=== PATIENT | female | born 1990 | race Two or more races ===

== ENCOUNTER 2022-01-05 05:58 | Day surgery (SDC) | payer OTHER ==
[2022-01-05] MEDS ORDERED: PERCOCET 5-3251 EACH PO (09:54)
[2022-01-05] MEDS ORDERED: NEURONTIN300 MG PO (09:54)
[2022-01-05] MEDS ORDERED: DERMOPLAST PAIN78 GM TOP (09:55)
[2022-01-05] MEDS ORDERED: KETO10TA2 PO (09:55)
== END 2022-01-05 13:30 | disposition home or self-care (01) ==
LOC: CIR.AMB 05:58
PROVIDERS: ATTEND Surgery
DX: K61.0 Anal abscess (principal)

== ENCOUNTER 2023-03-06 08:10 | Outpatient (CLI) | payer OTHER ==
[~2023-03-06 08:10] MED LIST: DERMOPLAST PAIN78 GM TOP; KETO10TA2 PO; NEURONTIN300 MG PO; PERCOCET 5-3251 EACH PO
[2023-03-06] MEDS ORDERED: PRENATABS RX T1 EACH PO (13:23)
[2023-03-06] MEDS ORDERED: CHILDREN'S ASPI81 MG PO (13:23)
== END 2023-03-06 12:08 | disposition home or self-care (01) ==
LOC: PRENATAL 08:10
PROVIDERS: ATTEND Obstetrics & Gynecology Maternal & Fetal Medicine
DX: O26.849 Uterine size-date discrepancy, unspecified trimester (principal); O26.879 Cervical shortening, unspecified trimester; Z14.8 Genetic carrier of other disease; O99.210 Obesity complicating pregnancy, unspecified trimester; Z3A.21 21 weeks gestation of pregnancy

== ENCOUNTER → 2023-03-07 | Day surgery (SDC) | payer OTHER ==
[2023-03-06 13:54] LABS: HEMATOCRIT 34.5 % (36.0-45.00); HEMOGLOBIN 11.7 g/dL (12.0-15.00); MEAN CELL VOLUME 81.7 fL (80.00-100.00); MEAN CORPUSCULAR HEMOGLOBIN 27.6 pg (27.00-32.0); MEAN CORPUSCULAR HGB CONC 33.8 g/dl (32.0-36.0); PLATELET COUNT 237 K/uL (150-450); RED BLOOD COUNT 4.22 M/uL (4.00-6.00); RED CELL DISTRIBUTION WIDTH 14.3 % (11.5-14.5)
[~2023-03-07] MED LIST changes: +CHILDREN'S ASPI81 MG PO; +INDOMETHACIN25 MG PO; +PRENATABS RX T1 EACH PO
== END | disposition home or self-care (01) ==
LOC: CIR.AMB 09:58 → AMB-ENDOS 11:54
PROVIDERS: ATTEND Obstetrics & Gynecology Maternal & Fetal Medicine
DX: O34.32 Maternal care for cervical incompetence, second trimester (principal); O26.872 Cervical shortening, second trimester; Z3A.22 22 weeks gestation of pregnancy; Z20.822 Contact with and (suspected) exposure to COVID-19

== ENCOUNTER 2023-03-22 06:24 | Inpatient (IN) | payer OTHER ==
[~2023-03-22] VITALS: Ht 162.6 cm; Wt 106.1 kg
--- NOTE | 2023-03-22 06:40 | NUR ---
PTE REFIERE MALESTAR AL ORINA CON DOLOR PELVICO LADO SOLOMON QUE INRADIA HACIA LA ESPALDA. PTE REFIERE DOLOR SURYA. PTE REFIERE QUE ESTA CON ANTIBITICOS Y MEDICAMENTOS PARA EL DOLOR QUE NO LA HURT AYUDADO. PTE EMBAZADA DE 24 SEMANAS. SE ACOMDA EN AREA DE PASILLO.
--- NOTE | 2023-03-22 08:47 | NUR ---
PACIENTE ALERTA Y ORIENTADA EN TAMELA JÚNIOR ESFERAS; UBICADA EN CUBICULO #9 LA MISMA ES ADMITIDA BAJO LOS SERVICIOS DEL DR. CONI YEH. SE EDUCA ACERCA DE PROCESO DE ADMISION Y REFIERE ENTEDER. SE CANALIZA Y COLECTAN MUESTRAS DE LABORATORIO MEDIANTE MEDIDAS ASEPTICAS. SE ADMINISTRAN MEDICAMENTOS ASHLY ORDEN MEDICA
[2023-03-22 08:49] LABS: HEMATOCRIT 32.6 % (36.0-45.00); HEMOGLOBIN 10.7 g/dL (12.0-15.00); MEAN CELL VOLUME 82.8 fL (80.00-100.00); MEAN CORPUSCULAR HEMOGLOBIN 27.3 pg (27.00-32.0); MEAN CORPUSCULAR HGB CONC 32.9 g/dl (32.0-36.0); PLATELET COUNT 258 K/uL (150-450); RED BLOOD COUNT 3.94 M/uL (4.00-6.00); RED CELL DISTRIBUTION WIDTH 14.1 % (11.5-14.5)
[2023-03-22 09:02] LABS: PH,URINE 6.5 (5.0-8.0); URINE APPEARANCE Cloudy; URINE BILIRRUBIN Negative (NEGATIVE); URINE BLOOD NHT; URINE COLOR Yellow; URINE GLUCOSE Negative (NEGATIVE); URINE LEUKOCYTE Large; URINE NITRATE Negative; URINE PROTEIN Negative (NEGATIVE); URINE UROBILINOGEN 0.2 E.U./dl
[2023-03-22 09:06] LABS: URINE BACTERIA 3869.4 uL (0.0-1933); URINE EPITHELIAL CELLS 73.7 uL (0.0-38.8); URINE RBC 81.6 uL (0.0-20.8); URINE WBC 615.6 uL (0.0-23.2)
[2023-03-22 09:26] LABS: CALCIUM 8.8 mg/dL (8.5-10.1); CREATININE SERUM 1.14 mg/dL (0.55-1.02); GFR 55.59; POTASSIUM 3.99 mEq/L (3.5-5.1)
== END 2023-03-24 10:02 | disposition home or self-care (01) | DRG 833 ==
LOC: ER 06:24 → SEC-K 07:59 → OB/GYN 07:59
PROVIDERS: General Practice; ADMIT Obstetrics & Gynecology; ATTEND Obstetrics & Gynecology
PROC: BT43ZZZ Ultrasonography of Bilateral Kidneys (ICD-10-PCS; 2023-03-21)
PROC: 4A1HXCZ Monitoring of Products of Conception, Cardiac Rate, External Approach (ICD-10-PCS; principal; 2023-03-22)
DX: O23.02 Infections of kidney in pregnancy, second trimester (principal); Z3A.24 24 weeks gestation of pregnancy; Z20.822 Contact with and (suspected) exposure to COVID-19

== ENCOUNTER 2023-03-24 11:29 | Outpatient (CLI) | payer OTHER | END 2023-03-24 15:24 | disposition home or self-care (01) | LOC: PRENATAL 11:29 | PROVIDERS: ATTEND Obstetrics & Gynecology Maternal & Fetal Medicine | DX: O26.879 Cervical shortening, unspecified trimester (principal); Z14.8 Genetic carrier of other disease; O99.210 Obesity complicating pregnancy, unspecified trimester; Z3A.24 24 weeks gestation of pregnancy ==

== ENCOUNTER 2023-04-24 08:59 | Outpatient (CLI) | payer OTHER | END 2023-04-24 09:08 | disposition home or self-care (01) | LOC: PRENATAL 08:59 | PROVIDERS: ATTEND Obstetrics & Gynecology Maternal & Fetal Medicine | DX: O26.849 Uterine size-date discrepancy, unspecified trimester (principal); O26.879 Cervical shortening, unspecified trimester; O99.210 Obesity complicating pregnancy, unspecified trimester; Z3A.28 28 weeks gestation of pregnancy ==

== ENCOUNTER 2023-05-30 15:44 | Outpatient (CLI) | payer OTHER | END 2023-05-30 15:46 | disposition home or self-care (01) | LOC: PRENATAL 15:44 | PROVIDERS: ATTEND Obstetrics & Gynecology Maternal & Fetal Medicine | DX: O26.849 Uterine size-date discrepancy, unspecified trimester (principal); O36.8199 Decreased fetal movements, unspecified trimester, other fetus; O26.879 Cervical shortening, unspecified trimester; O99.210 Obesity complicating pregnancy, unspecified trimester; Z3A.34 34 weeks gestation of pregnancy ==

== ENCOUNTER 2023-07-10 05:07 | Inpatient (IN) | payer OTHER ==
[~2023-07-10] VITALS: Ht 165.1 cm; Wt 110.7 kg
[2023-07-10] MEDS ORDERED: IRON236 MG PO (06:10)
[2023-07-10 06:25] LABS: URINE APPEARANCE Turbid; URINE BILIRRUBIN Negative (NEGATIVE); URINE BLOOD Negative; URINE COLOR Yellow; URINE GLUCOSE Negative (NEGATIVE); URINE LEUKOCYTE Trace; URINE NITRATE Negative; URINE UROBILINOGEN 0.2 E.U./dl
[2023-07-10 06:29] LABS: URINE BACTERIA 825.2 uL (0.0-1933); URINE EPITHELIAL CELLS 111.1 uL (0.0-38.8); URINE RBC 1639.4 uL (0.0-20.8); URINE WBC 273.2 uL (0.0-23.2)
[2023-07-10 06:39] LABS: HEMATOCRIT 34.3 % (36.0-45.00); HEMOGLOBIN 11.7 g/dL (12.0-15.00); MEAN CORPUSCULAR HEMOGLOBIN 29.4 pg (27.00-32.0); MEAN CORPUSCULAR HGB CONC 34.2 g/dl (32.0-36.0); PLATELET COUNT 256 K/uL (150-450); RED BLOOD COUNT 3.98 M/uL (4.00-6.00); RED CELL DISTRIBUTION WIDTH 15.6 % (11.5-14.5)
[2023-07-10 06:52] LABS: INR 1.04; PARTIAL THROMBOPLASTIN TIME 26.7 SECONDS (22.0-34.0); PROTHROMBIN TIME 10.9 SECONDS (9.0-11.5)
[2023-07-10 06:58] LABS: URINE PROTEIN 100 (NEGATIVE)
[2023-07-10 07:00] LABS: URINE SPERM FEW
[2023-07-10 07:26] LABS: BILIRUBIN TOTAL 0.38 mg/dL (0.3-1.2); CALCIUM 9.1 mg/dL (8.5-10.1); CREATININE SERUM 0.75 mg/dL (0.55-1.02); GFR 89.55; GLOBULINA 3.4 G/DL (2.4-3.5); POTASSIUM 3.85 mEq/L (3.5-5.1); TOTAL PROTEIN 6.4 gm/dL (6.4-8.2)
[2023-07-10 22:22] LABS: ABG PH 7.234 (7.35-7.45); ABG PO2 34.6 mmHg (80-100); ABG pCO2 44.7 mmHg (35-45); BASE EXCESS -8.8 mmol/l; SaO2 52.4 %
[2023-07-10 22:23] LABS: BICARBONATE 18.5 mmol/l (23-25); Tco2 19.9 mmol/l
[2023-07-10 22:24] LABS: o2 21 %
[2023-07-11 04:39] LABS: HEMATOCRIT 30.2 % (36.0-45.00); MEAN CELL VOLUME 84.8 fL (80.00-100.00); MEAN CORPUSCULAR HGB CONC 33.8 g/dl (32.0-36.0); PLATELET COUNT 253 K/uL (150-450); RED BLOOD COUNT 3.56 M/uL (4.00-6.00); RED CELL DISTRIBUTION WIDTH 15.8 % (11.5-14.5)
[2023-07-11 04:41] LABS: HEMOGLOBIN 10.2 g/dL (12.0-15.00); MEAN CORPUSCULAR HEMOGLOBIN 28.6 pg (27.00-32.0)
== END 2023-07-12 17:16 | disposition home or self-care (01) | DRG 807 ==
LOC: LDR 05:07 → OB/GYN 08:43 → LDR 08:53 → OB/GYN 19:47
PROVIDERS: ADMIT Specialist; ATTEND Specialist
PROC: 10E0XZZ Delivery of Products of Conception, External Approach (ICD-10-PCS; principal; 2023-07-10)
PROC: 0UQG7ZZ Repair Vagina, Via Natural or Artificial Opening (ICD-10-PCS; 2023-07-10)
PROC: 0UQMXZZ Repair Vulva, External Approach (ICD-10-PCS; 2023-07-10)
PROC: 4A1HXCZ Monitoring of Products of Conception, Cardiac Rate, External Approach (ICD-10-PCS; 2023-07-10)
DX: O71.4 Obstetric high vaginal laceration alone (principal); O71.82 Other specified trauma to perineum and vulva; Z37.0 Single live birth; Z3A.37 37 weeks gestation of pregnancy; Z20.822 Contact with and (suspected) exposure to COVID-19